=== PATIENT | male | born 1990 | race Caucasian/White ===

== ENCOUNTER 2019-08-11 13:06 | Emergency (ER) | payer BC ==
[~2019-08-11] VITALS: Ht 180.3 cm; Wt 88.6 kg
[2019-08-11 13:40] VITALS: BP 144/76; TEMP 98.2
[2019-08-11] MEDS ORDERED: CEPHALEXIN500 M1 PO (17:34)
[2019-08-11 18:15] VITALS: PULSE 72
== END 2019-08-11 18:20 | disposition home or self-care (01) ==
LOC: COL.ER 13:06
DX: S61.215A Laceration without foreign body of left ring finger without damage to nail, initial encounter (principal); T15.02XA Foreign body in cornea, left eye, initial encounter; Z23 Encounter for immunization; W26.0XXA Contact with knife, initial encounter; X58.XXXA Exposure to other specified factors, initial encounter; Y92.009 Unspecified place in unspecified non-institutional (private) residence as the place of occurrence of the external cause